=== PATIENT | female | born 1995 | race Caucasian/White ===

== ENCOUNTER 2018-08-31 16:02 | Outpatient (CLI) | payer OTHER | END 2018-08-31 17:00 | disposition home or self-care (01) | LOC: OBT 16:02 → L-D 16:03 → OBT 17:00 | DX: O36.8130 Decreased fetal movements, third trimester, not applicable or unspecified (principal); Z3A.38 38 weeks gestation of pregnancy | CPT/HCPCS: 76818 ==

== ENCOUNTER 2018-09-03 06:10 | Inpatient (IN) | payer OTHER ==
[2018-09-03 07:40] LABS: ADD UMIC YES; UR ASCORBIC ACID NEGATIVE (NEGATIVE); UR BACTERIA FEW /HPF (NONE SEEN); UR BILIRUBIN (Dip) NEGATIVE (NEGATIVE); UR BLOOD (Dip) 3+ mg/dL (NEGATIVE); UR CLARITY CLOUDY (CLEAR); UR COLOR YELLOW (YELLOW); UR GLUCOSE (Dip) NEGATIVE (NEGATIVE); UR KETONES (Dip) NEGATIVE (NEGATIVE); UR LEUKOCYTE ESTERASE (Dip) 3+ Leu/ul (NEGATIVE); UR MUCUS FEW /HPF (NONE SEEN); UR NITRITE (Dip) NEGATIVE (NEGATIVE); UR RBC > 182 /HPF (0-5); UR SPECIFIC GRAVITY (Dip) 1.014 (1.003-1.030); UR SQUAMOUS EPITHELIAL CELL MANY /HPF (FEW); UR TOTAL PROTEIN (Dip) 1+ mg/dl (NEGATIVE); UR UROBILINOGEN (Dip) NEGATIVE (NEGATIVE); UR WBC > 182 /HPF (0-5)
[2018-09-03] MEDS ORDERED: CARBOPROST 250 MCG INJ IM (08:30)
[2018-09-03] MEDS ORDERED: LIDOCAINE 1% (MPF) 30 ML INJ INJ (08:30)
[2018-09-03] MEDS ORDERED: METHYLERGONOVINE 0.2 MG INJ IM (08:30)
[2018-09-03] MEDS ORDERED: BUTORPHANOL 2 MG INJ IV (08:30)
[2018-09-03] MEDS ORDERED: MISOPROSTOL 200 MCG TAB PR (08:30)
[2018-09-03] MEDS ORDERED: OXYTOCIN 30 UNITS/LR 500 ML IV ×2 (08:30)
[2018-09-03 08:54] LABS: ADD MAN DIFF? NO
[2018-09-03 08:57] LABS: WHITE BLOOD COUNT 11.1 10^3/ul (4.8-10.8)
[2018-09-03 08:57] LABS: BASOPHILS % 0.4 % (0.0-2.0); EOSINOPHILS # 0.1 10^3/ul (0.0-0.5); EOSINOPHILS % 0.6 % (0.0-7.0); HEMATOCRIT 37.4 % (37.0-47.0); HEMOGLOBIN 12.7 g/dl (12.0-16.0); LYMPHOCYTES # 2.4 10^3/ul (0.8-2.9); LYMPHOCYTES % 21.8 % (15.0-51.0); MEAN CORPUSCULAR HEMOGLOBIN 31.4 pg (29.0-33.0); MEAN CORPUSCULAR VOLUME 92.3 fl (82.0-101.0); MEAN PLATELET VOLUME 12.5 fl (7.4-10.4); MONOCYTE # 0.6 10^3/ul (0.3-0.9); MONOCYTES % 5.6 % (0.0-11.0); NEUTROPHIL # 7.8 10^3/ul (1.6-7.5); NEUTROPHILS % 70.5 % (39.0-77.0); PLATELET COUNT 152 10^3/UL (140-415); RED BLOOD COUNT 4.05 10^6/ul (4.20-5.40); RED CELL DISTRIBUTION WIDTH 13.1 % (11.5-14.5)
[2018-09-03] MEDS ORDERED: MISOPROSTOL 100 MCG TAB PO (09:00)
[2018-09-03] MEDS: LACTATED RINGER'S 1,000 ML IV* ×2 (09:09→17:03)
[2018-09-03] MEDS: MISOPROSTOL 50 MCG CAPSULE PO ×3 (09:10→18:16)
[2018-09-03] MEDS: AMPICILLIN 2 GM/NS (PMX) 100 ML IV (09:13)
[2018-09-03 09:15] LABS: INR 0.86; PROTIME 11.8 Sec (11.9-14.9); PT RATIO 0.9
[2018-09-03 09:54] LABS: HEPATITIS B SURFACE ANTIGEN NEGATIVE (NEGATIVE)
[2018-09-03] MEDS: AMPICILLIN 1 GM/NS (PMX) 50 ML IV ×3 (13:11→21:12)
[2018-09-03] MEDS ORDERED: ACETAMINOPHEN 325 MG TAB PO ×2 (20:00→20:30)
[2018-09-03 20:16] LABS: RAPID PLASMA REAGIN NONREACTIVE (NR)
[2018-09-04] MEDS: MISOPROSTOL 50 MCG CAPSULE PO ×4 (00:12→19:16)
[2018-09-04] MEDS: AMPICILLIN 1 GM/NS (PMX) 50 ML IV ×3 (01:30→08:46)
[2018-09-04] MEDS: LACTATED RINGER'S 1,000 ML IV* ×3 (03:32→23:10)
[2018-09-05] MEDS ORDERED: OXYTOCIN 30 UNITS/LR 500 ML IV (00:30)
[2018-09-05] MEDS: LACTATED RINGER'S 1,000 ML IV* ×3 (07:24→22:12)
[2018-09-05] MEDS: OXYTOCIN 30 UNITS/LR 500 ML IV (11:45)
[2018-09-05] MEDS ORDERED: IBUPROFEN 600 MG TAB PO (20:00)
[2018-09-05] MEDS: LACTATED RINGER'S 1,000 ML IV (21:18)
[2018-09-05] MEDS ORDERED: FENTAnyl 2MCG/ML-ROPIV 0.2% 100 ML (22:18)
[2018-09-05] MEDS ORDERED: NALOXONE (0.4 MG/ML) INJ IV (23:00)
[2018-09-05] MEDS ORDERED: ONDANSETRON 4 MG INJ IV (23:00)
[2018-09-05] MEDS ORDERED: DIPHENHYDRAMINE 50 MG INJ IV (23:00)
[2018-09-05] MEDS: FENTAnyl 2MCG/ML-ROPIV 0.2% 100 ML BAG EPI (23:49)
[2018-09-06] MEDS ORDERED: LIDOCAINE 0.5% (SDV) 50 ML INJ INJ (04:00)
[2018-09-06] MEDS ORDERED: MINERAL OIL LIGHT 10 ML VIAL TOP (04:00)
[2018-09-06] MEDS: LACTATED RINGER'S 1,000 ML IV* ×2 (06:08→18:42)
[2018-09-06] MEDS: FENTAnyl 2MCG/ML-ROPIV 0.2% 100 ML BAG EPI (07:54)
[2018-09-06] MEDS ORDERED: LIDOCAINE 1% (MPF) 30 ML INJ (08:31)
[2018-09-06] MEDS ORDERED: LABETALOL HCL 20MG INJ (13:07)
[2018-09-06] MEDS ORDERED: MAGNESIUM SULFATE 4 GM/100 ML 100 ML (13:08)
[2018-09-06] MEDS: OXYTOCIN 30 UNITS/LR 500 ML IV ×2 (14:59→17:56)
[2018-09-06] MEDS: IBUPROFEN 800 MG TAB PO ×2 (17:57→23:42)
[2018-09-06] MEDS ORDERED: ZOLPIDEM 5 MG TAB PO (18:00)
[2018-09-06] MEDS ORDERED: DIPHENHYDRAMINE 25 MG CAP PO (18:00)
[2018-09-06] MEDS ORDERED: MISOPROSTOL 200 MCG TAB PR (18:00)
[2018-09-06] MEDS ORDERED: SENNA/DOCUSATE NA (8.6MG/50MG) TAB PO (18:00)
[2018-09-06] MEDS ORDERED: CARBOPROST 250 MCG INJ IM (18:00)
[2018-09-06] MEDS ORDERED: HYDROCODONE/APAP (5/325) TAB PO (18:00)
[2018-09-06] MEDS ORDERED: OXYTOCIN 30 UNITS/LR 500 ML IV (18:00)
[2018-09-06] MEDS ORDERED: METHYLERGONOVINE 0.2 MG INJ IM (18:00)
[2018-09-06] MEDS ORDERED: ACETAMINOPHEN 325 MG TAB PO (18:00)
[2018-09-06] MEDS ORDERED: MAGNESIUM HYDROXIDE 30ML CUP PO (18:00)
[2018-09-06] MEDS: WITCH HAZEL/GLYCERIN PAD PR (21:08)
[2018-09-06] MEDS: BENZOCAINE 20% 56 ML SPRAY TOP (21:09)
[2018-09-06] MEDS: LANOLIN 7 GM TUBE TOP (21:09)
[2018-09-07] MEDS: LACTATED RINGER'S 1,000 ML IV* (00:16)
[2018-09-07 05:07] LABS: ADD MAN DIFF? NO
[2018-09-07 05:18] LABS: WHITE BLOOD COUNT 14.4 10^3/ul (4.8-10.8)
[2018-09-07 05:18] LABS: BASOPHILS % 0.2 % (0.0-2.0); EOSINOPHILS # 0.1 10^3/ul (0.0-0.5); EOSINOPHILS % 0.7 % (0.0-7.0); HEMOGLOBIN 10.9 g/dl (12.0-16.0); LYMPHOCYTES % 20.8 % (15.0-51.0); MEAN CORPUSCULAR HEMOGLOBIN 31.5 pg (29.0-33.0); MEAN CORPUSCULAR HGB CONC 34.1 g/dl (32.0-37.0); MEAN CORPUSCULAR VOLUME 92.5 fl (82.0-101.0); MEAN PLATELET VOLUME 11.9 fl (7.4-10.4); NEUTROPHIL # 10.2 10^3/ul (1.6-7.5); NEUTROPHILS % 70.6 % (39.0-77.0); PLATELET COUNT 136 10^3/UL (140-415); RED BLOOD COUNT 3.46 10^6/ul (4.20-5.40); RED CELL DISTRIBUTION WIDTH 13.1 % (11.5-14.5)
[2018-09-07] MEDS: IBUPROFEN 800 MG TAB PO ×4 (06:16→23:41)
[2018-09-08] MEDS: IBUPROFEN 800 MG TAB PO (05:39)
[2018-09-08] MEDS: MEASLES,MUMPS,RUBELLA VACCINE INJ SC* (07:45)
[2018-09-08] MEDS: VARICELLA VACCINE LIVE/PF 1,350 UNIT/0.5 ML ML SC* (07:45)
[2018-09-08] MEDS: DIPHTH/TET/ACEL PERTUSS (ADULT) 0.5 ML VIAL IM* (07:46)
== END 2018-09-08 10:55 | disposition home or self-care (01) | DRG 807 ==
LOC: OBT 06:10 → MS1 09-06 17:12 → L-D 06:11 → OBT 08:06 → L-D 08:05
PROC: 3E033VJ Introduction of Other Hormone into Peripheral Vein, Percutaneous Approach (ICD-10-PCS; 2018-09-03)
PROC: 10E0XZZ Delivery of Products of Conception, External Approach (ICD-10-PCS; principal; 2018-09-06)
DX: O41.03X0 Oligohydramnios, third trimester, not applicable or unspecified (principal); O36.8130 Decreased fetal movements, third trimester, not applicable or unspecified; O26.853 Spotting complicating pregnancy, third trimester; Z3A.38 38 weeks gestation of pregnancy; Z37.0 Single live birth
CPT/HCPCS: 62319; 76815; 76818; 81001; 85025; 85610; 85730; 86592; 86850; 86900; 86901; 87086; 87340; 90715; 90716; 99464